=== PATIENT | female | born 1980 | race Caucasian/White ===

== ENCOUNTER 2017-02-11 12:22 | Emergency (ER) | payer MEDICARE ==
[~2017-02-11] VITALS: Ht 165.1 cm; Wt 80.9 kg
[~2017-02-11 12:22] MED LIST: ALLOPURINOL1 POW PO; ALLOPURINOL300 MG PO; ALPRAZOLAM; AMOXICILLIN 50500 MG PO; AMOXICILLIN 8751 TAB PO; ATARAX10 MG PO; ATIVAN 1MG T1 MG/TAB PO; ATIVAN2 MG PO; BACTRIM DS 8001 TAB PO; BCP TD; CATAPRES 0.1MG0.1 MG PO; CEFTIN500 MG PO; CELEXA 20MG20 MG/TAB PO; CEPHALEXIN250 M1 PO; CEPHALEXIN500 M1 PO; CIPRO 500MG TA500 MG PO; DEPAKOTE ER 50500 MG PO; DEPAKOTE250 MG PO; DESYREL DIVIDO150 M1 PO; DEXILANT60 MG PO; DOXYCYCLINE 10100 MG PO; ELAVIL25 MG PO; FERROUS SULFAT324 M1 PO; FLOMAX 0.40.4 MG/CAP PO; FLOMAX0.4 MG PO; GEODON80 MG PO; INDERAL 10MG10 MG PO; INDERAL 20MG20 MG PO; KLONOPIN 1MG1 MG PO; LIDODERM PATCH TP; LORTAB 10/500 51 TAB PO; LORTAB 5/500 501 TAB PO; LORTAB 7.5/5001 TA1 PO; LORTAB 7.5/5001 TAB PO; LUNESTA2 MG PO; LUTERA 0.02 MG-1 TAB PO; METRONIDAZOLE500 MG PO; MOTRIN 600600 MG/TAB PO; NAPROSYN500 MG PO; NORCO 325 MG-51 TAB PO; NORCO 325 MG-7.1 TAB PO; NORFLEX 10100 MG/TAB PO; PEN-VEE K500 MG PO; PEPCID 20MG TAB20 MG PO; PEPCID40 MG PO; PERCOCET 325 MG1 TA2 PO; PHENERGAN 25 TA25 MG PO; PHENERGAN25 MG RC; PREDNISONE10 MG PO; PREDNISONE20 MG PO; PROBIOTIC-MAJOR PO; PYRIDIUM200 M1 PO; SAPHRIS10 MG SL; SEROQUEL 200MG200 MG; SEROQUEL100 MG PO; THORAZINE100 MG/TAB PO; THORAZINE200 MG PO; TRAZADONE HYDR100 MG PO; ULTRAM 50MG TAB50 MG PO; ULTRAM50 MG PO; UROCIT; VALIUM5 MG PO; VIIBRYD20 MG PO; ZANAFLEX 4MG TAB4 MG PO; ZANAFLEX2 MG PO; ZOFRAN 4MG T4 MG/TAB PO; ZOFRAN4 M1 PO; ZOFRAN4 MG PO; ZOFRAN8 MG PO; concerta
[2017-02-11 12:25] VITALS: BP 109/61; TEMP 98.3
[2017-02-11 14:04] VITALS: PULSE 88
== END 2017-02-11 14:05 | disposition home or self-care (01) ==
LOC: COL.ER 12:22
DX: S93.401A Sprain of unspecified ligament of right ankle, initial encounter (principal); W18.42XA Slipping, tripping and stumbling without falling due to stepping into hole or opening, initial encounter

== ENCOUNTER → 2017-03-13 | Outpatient (CLI) | payer MEDICARE | LOC: BHSO 14:04 | DX: F31.73 Bipolar disorder, in partial remission, most recent episode manic (principal) ==

== ENCOUNTER 2017-08-05 20:28 | Emergency (ER) | payer MEDICARE ==
[~2017-08-05] VITALS: Ht 165.1 cm; Wt 83.2 kg
[2017-08-05 20:35] VITALS: BP 137/86; TEMP 98.8
[2017-08-05] MEDS ORDERED: BACTRIM DS 8001 TAB PO (20:41)
[2017-08-05] MEDS ORDERED: AMOXICILLIN 50500 MG PO (21:55)
[2017-08-05 22:09] VITALS: PULSE 88
== END 2017-08-05 22:10 | disposition home or self-care (01) ==
LOC: COL.ER 20:28
DX: K02.9 Dental caries, unspecified (principal); K21.9 Gastro-esophageal reflux disease without esophagitis; F31.9 Bipolar disorder, unspecified; F90.9 Attention-deficit hyperactivity disorder, unspecified type; Z87.442 Personal history of urinary calculi

== ENCOUNTER → 2017-08-27 | Outpatient (CLI) | payer MEDICARE | LOC: BHSO 11:02 | DX: F31.73 Bipolar disorder, in partial remission, most recent episode manic (principal) ==

== ENCOUNTER 2017-09-08 05:05 | Emergency (ER) | payer MEDICARE ==
[~2017-09-08] VITALS: Ht 165.1 cm; Wt 82.7 kg
[2017-09-08 05:10] VITALS: BP 133/78; TEMP 97.1
[2017-09-08] MEDS ORDERED: WELLBUTRIN XL300 M1 PO (05:33)
[2017-09-08] MEDS ORDERED: AMOXICILLIN 50500 MG PO (05:52)
[2017-09-08] MEDS ORDERED: NORCO 325 MG-51 TAB PO (05:52)
[2017-09-08 06:14] VITALS: PULSE 81
== END 2017-09-08 06:14 | disposition home or self-care (01) ==
LOC: COL.ER 05:05
DX: R68.84 Jaw pain (principal); K02.9 Dental caries, unspecified; I10 Essential (primary) hypertension; F31.9 Bipolar disorder, unspecified; Z87.442 Personal history of urinary calculi

== ENCOUNTER 2017-10-26 01:17 | Emergency (ER) | payer MEDICARE ==
[~2017-10-26] VITALS: Ht 165.1 cm; Wt 86.4 kg
[~2017-10-26 01:17] MED LIST changes: +WELLBUTRIN XL300 M1 PO
[2017-10-26 01:19] VITALS: BP 136/83; PULSE 81; TEMP 97.7
== END 2017-10-26 02:45 | disposition home or self-care (01) ==
LOC: COL.ER 01:17
DX: K02.9 Dental caries, unspecified (principal); F41.9 Anxiety disorder, unspecified; F31.9 Bipolar disorder, unspecified; F90.9 Attention-deficit hyperactivity disorder, unspecified type; Z87.442 Personal history of urinary calculi

== ENCOUNTER 2017-10-27 14:09 | Emergency (ER) | payer MEDICARE ==
[~2017-10-27] VITALS: Ht 165.1 cm; Wt 86.4 kg
[2017-10-27 14:15] VITALS: BP 144/89; PULSE 81; TEMP 98.5
== END 2017-10-27 15:13 | disposition home or self-care (01) ==
LOC: COL.ER 14:09
DX: R68.84 Jaw pain (principal); K02.9 Dental caries, unspecified; G43.909 Migraine, unspecified, not intractable, without status migrainosus; F31.9 Bipolar disorder, unspecified; F41.9 Anxiety disorder, unspecified

== ENCOUNTER 2017-10-31 16:12 | Emergency (ER) | payer MEDICARE ==
[~2017-10-31] VITALS: Ht 165.1 cm; Wt 86.4 kg
[2017-10-31 16:14] VITALS: TEMP 98.7
[2017-10-31 16:34] VITALS: BP 137/79; PULSE 90
== END 2017-10-31 16:35 | disposition home or self-care (01) ==
LOC: COL.ER 16:12
DX: R68.84 Jaw pain (principal); K02.9 Dental caries, unspecified

== ENCOUNTER → 2017-12-23 | Outpatient (CLI) | payer MEDICARE | LOC: BHSO 15:34 | DX: F31.73 Bipolar disorder, in partial remission, most recent episode manic (principal) | CPT/HCPCS: G0463 ==

== ENCOUNTER 2019-08-08 19:24 | Emergency (ER) | payer MEDICARE ==
[~2019-08-08] VITALS: Ht 165.1 cm; Wt 86.4 kg
[2019-08-08 19:32] VITALS: BP 99/59; TEMP 98
[2019-08-08] MEDS ORDERED: MOTRIN 800800 MG/TAB PO (20:54)
[2019-08-08 20:59] VITALS: PULSE 90
== END 2019-08-08 20:59 | disposition home or self-care (01) ==
LOC: COL.ER 19:24
DX: K08.89 Other specified disorders of teeth and supporting structures (principal); F31.9 Bipolar disorder, unspecified; K50.90 Crohn's disease, unspecified, without complications; Z87.442 Personal history of urinary calculi
CPT/HCPCS: J1885

== ENCOUNTER 2021-03-10 05:39 | Day surgery (SDC) | payer MEDICARE ==
[2021-03-10] VITALS (9 sets, daily range): BP systolic 93–114; BP diastolic 47–72; PULSE 74–97; TEMP 97.3–98.1
[~2021-03-10] VITALS: Ht 165.1 cm; Wt 100.1 kg
[~2021-03-10 05:39] MED LIST changes: +MOTRIN 800800 MG/TAB PO
[2021-03-10] MEDS ORDERED: KLONOPIN 1MG1 MG PO (06:12)
[2021-03-10] MEDS ORDERED: REGLAN 10MG10 MG/TAB PO (06:14)
[2021-03-10] MEDS ORDERED: LINZESS145CAP PO (06:15)
[2021-03-10] MEDS ORDERED: INDERAL 20MG20 MG PO (06:16)
--- NOTE | 2021-03-10 09:42 | NUR ---
PT BROUGHT UP BY PACU NURSE AROUND 0930 TO ROOM 342. PT AWAKE AND ALERT, RATES PAIN OF 4/10. MOM COMING UP FROM WAITING AREA. PT GIVEN WARM BLANKET AND SET UP ON VITALS AT 15 MINUTE INTERVALS, ON 2 L NC, SCD'S HOOKED UP, IV GOING AT 125ML/HR. PT DRINKING APPLE JUICE AND TOLERATING WELL, WILL TRY JELLO TOLERATES.
--- NOTE | 2021-03-10 16:27 | NUR ---
pt. up to chiar x1 min assist with cues.Legs elevated. Dad at BS.
--- NOTE | 2021-03-10 18:38 | NUR ---
PT C/O 7/10 PAIN LEVEL AN HOUR PRIOR TO WHEN PERCOCET COULD BE ADMINISTERED. PROVIDER CALLED AND ONE TIME DOSE OF 50 MCG FENTANYL ORDERED.
--- NOTE | 2021-03-10 19:11 | NUR ---
Awake, alert, oriented x 4, able to make needs known, Abdominal lap sites w/o s/s of infection, vs stable, updated on plan of care- verbalized understanding, patient teaching RE; pain managment, plan made with patient
[2021-03-11 01:50] VITALS: BP 122/86; PULSE 75; TEMP 97.9
[2021-03-11 04:51] VITALS: BP 124/74; PULSE 82; TEMP 97.7
--- NOTE | 2021-03-11 06:52 | NUR ---
Lying in bed with eyes open. Patient is alert and oriented for the most part but confused at the same time. Patient says that she is here to have surgery today. THen patient says "oh yeah I already had surgery". Minimal pain at this time. Patient says that she has not slept for two days and is very tired. Encourage patient to rest at this time. Abd lap sites x3 with all edges well approximated, glue intact, no redness/swelling/discharge noted. Alex to dependent drainage with clear yellow urine in bag. Patient asks for milk. Ask patient if she would like me to discard her milk that is on her bedside table and patient says that the milk cartons are not milk. Assist patient at looking at cartons further and then patient agrees that they are milk and would like them discarded. Patient also requests tanya vazquez and Chinyere, provided. Patient denies additional needs at this time. Encourage patient to rest.
--- NOTE | 2021-03-11 07:01 | NUR ---
Dr. Jones updated on patient confusion. SHe will come by to assess the patient.
[2021-03-11 07:20] VITALS: BP 123/81; PULSE 84; TEMP 97.7
--- NOTE | 2021-03-11 08:42 | NUR ---
Patient ambulates from room to podium at nurses station and then back to room. Gait slow and steady. Patient remains a little confused, thought she was home last night doing laundry. Reorient patient. Patient says that she is tired. Assist to comfortable position in bed and encourage rest. Denies additional needs.
--- NOTE | 2021-03-11 08:50 | NUR ---
Receive call from patient's mother and she says that she is concerned about the patient. According to the patient's mother the patient has sent a few texts that do not make sense and she has spoken with the patient this morning as well and she is confused. Explain that we also noticed the confusion and we have contacted the provider and she will be coming in to see the patient. Patient's mother concerned that the patient took her own home meds and did not tell anyone. Explain that yesterday they sent the patient's meds to the pharmacy and this is where they are being stored and that the night nurse contacted the provider last night and received orders to give her normal scheduled meds. Mother of patient says that the patient mentioned she was coming home today and the mother says that she is not going to bring the patient home today in the mental state that she is in as she will only be a harm to herself in her state of confusion. Explain that I would relay this to the provider. Patient's mother would like a call from the provider when she comes in to the see the patient.
--- NOTE | 2021-03-11 09:23 | NUR ---
Bed alarm going off. Enter room patient sitting on edge of bed. Says she would like to go into bathroom and try to have BM. Patient assisted into bathroom. Attempts BM but unsuccessful. Returns back to room and sits in chair while this nurse changes bed. Assist patient with sponge bath. Patient gets in bed, catheter care provided and new stat lock applied. Patient off and on remains confused. Discuss this with the patient and she says in the past depending on narcotic medication she is given can cause her confusion. Patient assisted into comfortable position in the bed. Denies additional needs at this time.
--- NOTE | 2021-03-11 09:40 | NUR ---
Dr. Pisano was in to see patient. Orders received to remove catheter. Patient informed of procedure process. Remove 8ml of saline from catheter balloon. Catheter pulled at this time with all intact. Patient tolerates without difficulty. INstructed the patient to call when she needs assistance out of bed. Patient verbalizes understanding.
--- NOTE | 2021-03-11 10:39 | NUR ---
Lying in bed with eyes open. Patient asks for warm blankets, provide at this time. Patient says that she thought she was going home today. Explain that she has been having confusion and we want to make sure she is okay before we send her home. Patient says that she thinks when she takes Klonopin with pain medication it causes her to be confused. Explain that Dr. Jones has placed a [facility] to [facility] her as well to assess her confusion and review her meds. Patient agrees to plan. Denies additional needs at this time.
--- NOTE | 2021-03-11 10:55 | NUR ---
Patient uses call light. VANDANA Thompson, goes in room. Patient would like snack, requests pudding and milk, which is provided. Patient unsure what day of the week it is so Donna explained that it is Saturday. Patient says that she thought it was Saturday and was confused how it could be Saturday. Patient wanted menu to look at food options for lunch, provided. Patient denies additional needs.
--- NOTE | 2021-03-11 11:22 | NUR ---
CORTES met with patient's mother Yolanda (P# [phone]) due to patient's confusion. Mother reports that patient lives alone in an apartment in [place]. Mother reports that she and father are patient's DPOAs and that records were given to admissions staff. Records are not filed in currently. Patient sees Dr. Vu and uses [facility] for medications. Patient's mother denies that daughter needs assistance with ADLs and uses no DME. Mother denies needing assistance paying for medications. Patient will discharge to parents' home for several days to keep an eye on her, and parents will provide transportation. Patient was confused yesterday and today. Parents contacted staff to notify of concerning phone calls from patient. Staff are addressing concerns. Social work will continue to follow.
--- NOTE | 2021-03-11 11:35 | NUR ---
Lying in bed with eyes closed. Respirations even and unlabored. No signs or symptoms of discomfort noted at this time.
[2021-03-11 12:00] VITALS: BP 106/60; PULSE 77; TEMP 97.4
--- NOTE | 2021-03-11 12:07 | NUR ---
Lying in bed with eyes open. Rates pain in abd 7/10 and requests pain medication. Administer Percocet as prescribed. Provide water to patient. Patient denies need to void at this time. Explain that we will give the pain medication a little bit of time to work and then we will get up to walk again. Patient verbalizes understanding and denies additional needs.
--- NOTE | 2021-03-11 12:23 | NUR ---
Patient requesting two more puddings and two more milks. Offer to assist ordering patient lunch and patient declines and says that she just wants the pudding and milk. Provide per patient request. Patient has had at least 8 chocolate pudding cups this morning and six 2% milks. Patient denies additional needs.
--- NOTE | 2021-03-11 12:54 | NUR ---
Patient up to bathroom and voids approx 250ml clear yellow urine. Ambulate with patient in halls to medical floor double doors and back to room. Patient assisted into comfortable position in bed. Patient says that she feels like her head is not clear all the way yet but is a little bit better. Denies additional needs at this time.
[2021-03-11 15:23] LABS: CALCIUM 8.7 mg/dL (8.4-10.2); CREATININE, serum 0.8 (0.52-1.25); POTASSIUM 3.9 mmol/L (3.4-5.0)
[2021-03-11 16:00] VITALS: BP 113/66; PULSE 84; TEMP 97.8
--- NOTE | 2021-03-11 16:25 | NUR ---
Lying in bed with eyes open. Patient says that she cannot believe it is this late in the day, feels like she has slept most of the day. Assist patient in ordering dinner. Patient seems to be more mentally with it than she was this morning. Offer to walk with the patient in the halls and the patient says that she jsut got comfortable in bed and does not want to at this time. Denies additional needs.
--- NOTE | 2021-03-11 17:28 | NUR ---
Patient ambulates to nurses station and asks where the women's restroom is. Assist patient back to room and show her the bathroom in her room. Patient says that she thought that room was a closet. Patient voids at this time. Returns to bed. Denies additional needs.
--- NOTE | 2021-03-11 18:29 | NUR ---
Patient's father in room visiting with the patient. He says that he can tell the patient is better and not confused as she was this morning. Patient says that she can tell a difference and knows that she mentally feels better. Denies additional needs at this time.
[2021-03-11 19:53] VITALS: BP 107/65; PULSE 92; TEMP 98.7
[2021-03-12 05:04] VITALS: BP 125/78; PULSE 85; TEMP 98.5
--- NOTE | 2021-03-12 06:21 | NUR ---
PATIENT REPORTED SLEEPING WELL THROUGHOUT THE NIGHT. PATIENT HAS BEEN KIND, CALM, AND COOPERATIVE THROUGHOUT THE SHIFT. PRN PAIN MEDICATION ADMINISTERED ONCE THIS SHIFT. NO NEW ISSUES NOTED OR REPORTED BY PATIENT.
--- NOTE | 2021-03-12 06:40 | NUR ---
Lying in bed with eyes open looking at menu to order breakfast. Alert and oriented x4. Patient says that she feels much better and clear headed today. Was able to get lots of sleep last night. Has pain and sore ness in abd, especially with movement. Abd lap sites x3 with edges well approximated, AGUSTINA, no redness/swelling/discharge noted. Patient hopeful to get out of hospital today and home to see family. Denies additional needs at this time.
[2021-03-12 07:15] VITALS: BP 101/54; PULSE 90; TEMP 97.8
--- NOTE | 2021-03-12 09:34 | NUR ---
Patient having pain in abd and asks about pain medication. Explain that she cannot get more pain medication until 1100. Patient verbalizes understanding and says that she is able to tolerate at this time. Provide pepsi per patient request. Denies additional needs.
--- NOTE | 2021-03-12 11:12 | NUR ---
Sitting up in bed watching TV. Rates pain in abd 7/10 and wants pain medication. Administer NOrco as prescribed. Patient has ordered lunch and is waiting on it to arrive. Patient is aware that we are waiting on Dr. Jones to come see her to place final discharge orders. Patient denies additional needs at this time.
[2021-03-12 11:15] VITALS: BP 98/63; PULSE 88; TEMP 98.2
[2021-03-12] MEDS ORDERED: NORCO 325 MG-51 TAB PO (11:31)
[2021-03-12] MEDS ORDERED: IBU800 M1 PO (11:31)
--- NOTE | 2021-03-12 11:39 | NUR ---
Dr. Higginbotham was in and seen patient and reviewed discharge recommendations and places discharge order. Patient informed that we will get her paperwork together to get her ready for discharge. Patient will notify her parents that she is ready to come home. Called and meds received from pharmacy. Will provide back to patient. Patient would like instructions reviewed with her at this time.
--- NOTE | 2021-03-12 11:49 | NUR ---
Provide patient her medications back, place in patient personal belongings bag. Instruct patient not to take any of the medications at this time as we have provided her with all the scheduled meds she needs at this time. Review all discharge instructions with the patient. Patient verbalizes understanding and denies questions. Signs discharge paperwork. Discharge packet also placed in patient personal belongings bag. Patient sitting up in bed eating lunh at this time. Says that her mom is on her way to pick her up. Patient will get dressed and use call light when her mom is here. Denies additional needs at this time.
--- NOTE | 2021-03-12 12:10 | NUR ---
Sitting on edge of bed dressed in her clothes. Has all personal belongings packed. Waiting on her mom to arrive. Patient will use call light when mother is here.
--- NOTE | 2021-03-12 12:14 | NUR ---
Patient calls that her mom is here to pick her up. Patient assisted out to POV with all belongings by Jennifer, charge nurse, ambulatory.
== END 2021-03-12 12:15 | disposition home or self-care (01) ==
LOC: SDCO 05:39 → SURG 11:05 → SDCO 03-12 12:15
PROVIDERS: Obstetrics & Gynecology; Student in an Organized Health Care Education/Training Program
DX: N83.01 Follicular cyst of right ovary (principal); G89.29 Other chronic pain; Z88.5 Allergy status to narcotic agent; Z88.8 Allergy status to other drugs, medicaments and biological substances; K21.9 Gastro-esophageal reflux disease without esophagitis; K58.9 Irritable bowel syndrome, unspecified; F32.9 Major depressive disorder, single episode, unspecified; N30.10 Interstitial cystitis (chronic) without hematuria; N73.9 Female pelvic inflammatory disease, unspecified; F41.9 Anxiety disorder, unspecified; N94.6 Dysmenorrhea, unspecified
CPT/HCPCS: OP; 99232-AI; A4314; J0330; J0690; J1100; J1885; J2405; J2704; J3010; J7120

== ENCOUNTER 2021-10-15 00:35 | Emergency (ER) | payer MEDICARE ==
[~2021-10-15] VITALS: Ht 165.1 cm; Wt 100.0 kg
[~2021-10-15 00:35] MED LIST changes: +IBU800 M1 PO; +LINZESS145CAP PO; +REGLAN 10MG10 MG/TAB PO
[2021-10-15 00:57] VITALS: TEMP 97.8
[2021-10-15 04:00] VITALS: BP 138/72; PULSE 78
== END 2021-10-15 04:00 | disposition home or self-care (01) ==
LOC: COL.ER 00:35
DX: S99.912A Unspecified injury of left ankle, initial encounter (principal); F31.9 Bipolar disorder, unspecified; Z79.899 Other long term (current) drug therapy; W10.9XXA Fall (on) (from) unspecified stairs and steps, initial encounter
CPT/HCPCS: L4386

== ENCOUNTER → 2021-10-18 | Outpatient (CLI) | payer MEDICARE | LOC: COL.VAS 12:07 | DX: M79.605 Pain in left leg (principal) ==

== ENCOUNTER 2022-08-04 00:27 | Emergency (ER) | payer MEDICARE ==
[~2022-08-04] VITALS: Ht 165.1 cm; Wt 90.9 kg
[2022-08-04 00:37] VITALS: BP 108/79; TEMP 97.7
[2022-08-04 02:25] VITALS: PULSE 83
== END 2022-08-04 02:25 | disposition home or self-care (01) ==
LOC: COL.ER 00:27
DX: M25.511 Pain in right shoulder (principal); M79.621 Pain in right upper arm; W01.198A Fall on same level from slipping, tripping and stumbling with subsequent striking against other object, initial encounter; Y93.01 Activity, walking, marching and hiking

== ENCOUNTER → 2022-09-04 | Outpatient (CLI) | payer MEDICARE | LOC: MC.RAD 12:54 | DX: N63.25 Unspecified lump in the left breast, overlapping quadrants (principal) ==

== ENCOUNTER 2024-08-28 14:26 | Outpatient (RCR) | payer MEDICARE, MEDICAID ==
[~2024-08-28 14:26] MED LIST changes: +ALDACTONE 25MG25 M1 PO; +ASPIRIN 81M81 MG/TA2 PO; +BUMEX 1MG TA1 MG/TA1 PO; +CELEXA40 MG PO; +COMPLETE MULTI1 TAB PO; +COUMADIN 5MG5 MG/TAB PO; +K-DUR20 MEQ PO; +KLONOPIN 0.5MG0.5 MG PO; +LASIX 20MG TABL20 MG PO; +LASIX 40MG TABL40 MG PO; +NATURAL MAGNES200 MG PO; +NATURE'S BLEND100 M2 PO; +NEURONTIN400 MG/CAP PO; +NIZORAL CR 30GM TOP; +OXYGEN NASAL.CANN; +PROAIR HFA0.09 MG/AC IH; +PROAMATINE2.5 MG PO; +ROXICODONE 55 MG/TAB PO; +TYLENOL 325MG325 MG PO; +VITAMIN B COMPL1 SGL PO; +VITAMIN K0.1 MG PO; +WELLBUTRIN XL150 MG PO; -WELLBUTRIN XL300 M1 PO
[2024-09-16] MEDS ORDERED: ZANAFLEX CAPSULE2 MG PO (13:13)
[2024-09-16] MEDS ORDERED: TRAZIMERA150 MG PO (13:14)
== END 2024-09-17 | disposition home or self-care (01) ==
LOC: COL.CR
DX: Z02.89 Encounter for other administrative examinations (principal)